=== PATIENT | male | born 1960 | race Caucasian/White ===

== ENCOUNTER → 2018-01-31 13:37 | Outpatient (REF) | payer MEDICARE, SELFPAY ==
[2018-02-03 11:11] LABS: Campylobacter PCR SEE COMMENTS; Salmonella PCR SEE COMMENTS; Shiga Toxin PCR SEE COMMENTS; Shigella/Enteroinvasive Ecoli SEE COMMENTS
== END ==
LOC: NCHCN 13:37
PROVIDERS: PCP Family Medicine; Visit Provider Family Medicine
DX: K92.1 Melena (principal)
CPT/HCPCS: 87505

== ENCOUNTER → 2018-02-07 09:58 | Outpatient (REF) | payer MEDICARE, SELFPAY ==
[2018-02-07 11:37] LABS: HCT 37.1 % (40.0-50.0); HGB 12.4 g/dL (13.5-17.5); Mean Corp. HGB Concentration 33.4 g/dL (32.0-36.0); Mean Corpuscular Hemoglobin 29.6 pg (27.0-33.0); Mean Corpuscular Volume 88.5 fL (80-95); Mean Platelet Volume 10.6 fL (8.0-11.0); Platelet Count 318 x1000/uL (130-400); RBC 4.19 m/cumm (4.50-6.00); RBC Distribution Width 13.4 % (11.8-14.1); White Blood Cell Count 9.83 k/cumm (4.4-10.8)
[2018-02-07 12:09] LABS: Anion Gap 9.5 mmol/L (3-11); BUN 19 mg/dL (7-18); CO2 26.5 mmol/L (21.0-32.0); CREATININE 1.16 mg/dL (0.70-1.30); Calcium 8.3 mg/dL (8.5-10.1); Chloride 103 mmol/L (98-107); Glucose 121 mg/dL (70-100); Potassium 4.7 mmol/L (3.5-5.1); Sodium 139 mmol/L (136-145); TSH 4.62 uIU/mL (0.358-3.74)
[2018-02-07 12:15] LABS: ESR 45 MM/HR (1-20)
== END ==
LOC: NCHCN 09:58
PROVIDERS: PCP Family Medicine; Visit Provider Family Medicine
DX: R94.6 Abnormal results of thyroid function studies (principal); K92.1 Melena; R79.89 Other specified abnormal findings of blood chemistry
CPT/HCPCS: 80048; 82533; 85027; 85652; 84443

== ENCOUNTER 2018-04-24 12:36 | Outpatient (REF) | payer MEDICARE, MEDICAID, SELFPAY ==
[2018-04-24 21:57] LABS: HCT 38.3 % (40.0-50.0); HGB 12.8 g/dL (13.5-17.5)
[2018-04-24 22:51] LABS: ALT 35 U/L (12-78); AST 49 U/L (15-37); Alkaline Phosphatase 140 U/L (46-116); Anion Gap 12.7 mmol/L (3-11); BUN 19 mg/dL (7-18); Bilirubin, Total 0.6 mg/dL (0.2-1.0); CO2 23.3 mmol/L (21.0-32.0); CREATININE 1.16 mg/dL (0.70-1.30); Chloride 100 mmol/L (98-107); Cholesterol 172 mg/dL (50-200); Glucose 119 mg/dL (70-100); HDL Cholesterol 53 mg/dL (40-60); LDL CHOLESTEROL 94 mg/dL (<100); Potassium 4.1 mmol/L (3.5-5.1); Sodium 136 mmol/L (136-145); Total Protein 7.7 g/dL (6.4-8.2); Triglyceride 168 mg/dL (30-150)
[2018-04-24 23:11] LABS: FREE T4 0.89 ng/dL (0.76-1.46)
[2018-04-28 09:03] LABS: EDDP-by GC-MS 9429 ng/mL; Methadone Interpretation Positive.; Methadone-by GC-MS 6854 ng/mL
[2018-04-28 10:08] LABS: PSA, Screening 0.2 ng/ml (0-3.5)
[2018-04-29 11:46] LABS: Amphetamine 1874 ng/mL (Cutoff: 25); Amphetamines Interpretation Positive.; MDA (Ecstasy Metabolite) Negative ng/mL (Cutoff: 25); MDMA (Ecstasy) Negative ng/mL (Cutoff: 25); Methamphetamine 6860 ng/mL (Cutoff: 25); Phentermine Negative ng/mL (Cutoff: 25); Pseudoephedrine/Ephedrine Negative ng/mL (Cutoff: 25)
[2018-04-30 12:02] LABS: Codeine Negative ng/mL (Cutoff: 25); Dihydrocodeine Negative ng/mL (Cutoff: 25); Hydrocodone Negative ng/mL (Cutoff: 25); Hydromorphone Negative ng/mL (Cutoff: 25); Morphine Negative ng/mL (Cutoff: 25); Naloxone Negative ng/mL (Cutoff: 25); Norhydrocodone Negative ng/mL (Cutoff: 25); Noroxycodone 370 ng/mL (Cutoff: 25); Noroxymorphone 33 ng/mL (Cutoff: 25); Opiates Interpretation Positive.
== END 2018-04-24 12:56 ==
LOC: NCHCN 12:36
PROVIDERS: PCP Family Medicine; Visit Provider Family Medicine
DX: R94.6 Abnormal results of thyroid function studies (principal); R07.9 Chest pain, unspecified; E78.5 Hyperlipidemia, unspecified; N28.9 Disorder of kidney and ureter, unspecified; K92.1 Melena; Z12.5 Encounter for screening for malignant neoplasm of prostate; F11.20 Opioid dependence, uncomplicated; G89.21 Chronic pain due to trauma; Z51.81 Encounter for therapeutic drug level monitoring
CPT/HCPCS: 80053; 80061; 80324; 80361; 83721; 84153; 80358; 84439; 84443; 85014; 85018

== ENCOUNTER 2018-05-16 16:17 | Outpatient (REF) | payer MEDICARE, MEDICAID, SELFPAY ==
[2018-05-20 22:37] LABS: Codeine Negative ng/mL (Cutoff: 25); Dihydrocodeine Negative ng/mL (Cutoff: 25); Hydrocodone Negative ng/mL (Cutoff: 25); Hydromorphone Negative ng/mL (Cutoff: 25); Morphine 260 ng/mL (Cutoff: 25); Naloxone Negative ng/mL (Cutoff: 25); Norhydrocodone Negative ng/mL (Cutoff: 25); Noroxycodone Negative ng/mL (Cutoff: 25); Noroxymorphone Negative ng/mL (Cutoff: 25)
[2018-05-21 03:25] LABS: EDDP-by GC-MS 5954 ng/mL; Methadone Interpretation Positive.; Methadone-by GC-MS 8125 ng/mL
[2018-05-21 10:17] LABS: Amphetamine 1644 ng/mL (Cutoff: 25); Amphetamines Interpretation Positive.; MDMA (Ecstasy) Negative ng/mL (Cutoff: 25); Methamphetamine 4780 ng/mL (Cutoff: 25); Phentermine Negative ng/mL (Cutoff: 25); Pseudoephedrine/Ephedrine Negative ng/mL (Cutoff: 25)
== END 2018-05-16 16:37 ==
LOC: NCHCN 16:17
PROVIDERS: PCP Family Medicine; Visit Provider Family Medicine
DX: G89.21 Chronic pain due to trauma (principal); F15.20 Other stimulant dependence, uncomplicated; F11.20 Opioid dependence, uncomplicated
CPT/HCPCS: 80324; 80361; 80358

== ENCOUNTER 2018-06-17 19:32 | Outpatient (REF) | payer MEDICARE, MEDICAID, SELFPAY ==
[2018-06-20 08:54] LABS: Codeine Negative ng/mL (Cutoff: 25); Dihydrocodeine Negative ng/mL (Cutoff: 25); Hydrocodone Negative ng/mL (Cutoff: 25); Hydromorphone Negative ng/mL (Cutoff: 25); Morphine Negative ng/mL (Cutoff: 25); Naloxone Negative ng/mL (Cutoff: 25); Norhydrocodone Negative ng/mL (Cutoff: 25); Noroxycodone Negative ng/mL (Cutoff: 25); Noroxymorphone Negative ng/mL (Cutoff: 25); Opiates Interpretation Negative.
== END 2018-06-17 19:52 ==
LOC: NCHCN 19:32
PROVIDERS: PCP Family Medicine; Visit Provider Family Medicine
DX: M54.5 Low back pain (principal); F11.20 Opioid dependence, uncomplicated
CPT/HCPCS: 80361

== ENCOUNTER 2018-12-02 22:25 | Outpatient (REF) | payer MEDICARE, MEDICAID, SELFPAY ==
[2018-12-02 23:00] LABS: Abs Immature Grans 0.02 k/cumm (0.0-0.09); Absolute Basophil Count 0.05 k/cumm (0.0-0.2); Absolute Eosinophil Count 0.32 k/cumm (0.0-0.7); Absolute Lymphocyte Count 2.79 k/cumm (1.2-3.4); Absolute Monocyte Count 0.66 k/cumm (0.11-0.7); Absolute Neutrophil Count 5.53 k/cumm (1.2-6.7); Basophils % 0.5; Eosinophils % 3.4; HCT 40.2 % (40.0-50.0); HGB 13.3 g/dL (13.5-17.5); Immature Grans % 0.2; Lymphocytes % 29.8; Mean Corp. HGB Concentration 33.1 g/dL (32.0-36.0); Mean Corpuscular Hemoglobin 28.5 pg (27.0-33.0); Mean Corpuscular Volume 86.3 fL (80-95); Mean Platelet Volume 11.2 fL (8.0-11.0); Neutrophils % 59.1; Platelet Count 258 x1000/uL (130-400); RBC 4.66 m/cumm (4.50-6.00); RBC Distribution Width 13.9 % (11.8-14.1); White Blood Cell Count 9.37 k/cumm (4.4-10.8)
[2018-12-02 23:01] LABS: ALT 30 U/L (12-78); AST 34 U/L (15-37); Albumin 3.9 g/dL (3.4-5.0); Alkaline Phosphatase 119 U/L (46-116); Anion Gap 7.6 mmol/L (3-11); BUN 21 mg/dL (7-18); Bilirubin, Total 0.3 mg/dL (0.2-1.0); CO2 26.4 mmol/L (21.0-32.0); CREATININE 0.93 mg/dL (0.70-1.30); Chloride 101 mmol/L (98-107); Glucose 122 mg/dL (70-100); Potassium 4.5 mmol/L (3.5-5.1); Sodium 135 mmol/L (136-145); Total Protein 7.5 g/dL (6.4-8.2)
[2018-12-05 13:36] LABS: Codeine Negative ng/mL (Cutoff: 25); Dihydrocodeine Negative ng/mL (Cutoff: 25); Hydrocodone Negative ng/mL (Cutoff: 25); Hydromorphone Negative ng/mL (Cutoff: 25); Morphine Negative ng/mL (Cutoff: 25); Naloxone Negative ng/mL (Cutoff: 25); Norhydrocodone Negative ng/mL (Cutoff: 25); Noroxycodone 136 ng/mL (Cutoff: 25); Noroxymorphone Negative ng/mL (Cutoff: 25); Opiates Interpretation Positive.
[2018-12-06 16:02] LABS: Benzoylecgonine 150 ng/mL (Cutoff: 50); Cocaine Negative ng/mL (Cutoff: 50); Cocaine Interpretation Positive.
[2018-12-09 09:34] LABS: Amphetamine 211 ng/mL (Cutoff: 25); Amphetamines Interpretation Positive.; MDA (Ecstasy Metabolite) Negative ng/mL (Cutoff: 25); MDMA (Ecstasy) Negative ng/mL (Cutoff: 25); Methamphetamine 529 ng/mL (Cutoff: 25); Phentermine Negative ng/mL (Cutoff: 25); Pseudoephedrine/Ephedrine Negative ng/mL (Cutoff: 25)
== END 2018-12-02 22:45 ==
LOC: NCHCN 22:25
PROVIDERS: PCP Family Medicine; Visit Provider Family Medicine
DX: I10 Essential (primary) hypertension (principal); M54.5 Low back pain; F19.20 Other psychoactive substance dependence, uncomplicated; G89.29 Other chronic pain
CPT/HCPCS: 80053; 80324; 80361; 80353; 85025

== ENCOUNTER 2019-06-16 16:40 | Outpatient (REF) | payer MEDICARE, MEDICAID, SELFPAY ==
[2019-06-16 21:53] LABS: HCT 37.6 % (40.0-50.0); Mean Corp. HGB Concentration 31.9 g/dL (32.0-36.0); Mean Corpuscular Hemoglobin 27.8 pg (27.0-33.0); Mean Platelet Volume 10.1 fL (8.0-11.0); Platelet Count 283 x1000/uL (130-400); RBC 4.32 m/cumm (4.50-6.00); White Blood Cell Count 7.66 k/cumm (4.4-10.8)
[2019-06-16 22:19] LABS: ALT 26 U/L (16-63); AST 31 U/L (15-37); Albumin 3.9 g/dL (3.4-5.0); Alkaline Phosphatase 106 U/L (46-116); Anion Gap 6.2 mmol/L (3-11); BUN 19 mg/dL (7-18); Bilirubin, Total 0.2 mg/dL (0.2-1.0); C-Reactive Protein 0.49 mg/dL (0.0-0.3); CO2 27.8 mmol/L (21.0-32.0); CREATININE 0.95 mg/dL (0.70-1.30); Calcium 8.6 mg/dL (8.5-10.1); Chloride 104 mmol/L (98-107); Creatine Kinase 307 U/L (39-308); Glucose 98 mg/dL (74-106); Magnesium 1.8 mg/dL (1.8-2.4); Potassium 4.3 mmol/L (3.5-5.1); Sodium 138 mmol/L (136-145); Total Protein 7.6 g/dL (6.4-8.2)
[2019-06-16 22:35] LABS: ESR 20 mm/hr (1-20)
[2019-06-19 03:27] LABS: EDDP-by GC-MS 943 ng/mL; Methadone Interpretation Positive.; Methadone-by GC-MS 2287 ng/mL
[2019-06-19 07:28] LABS: Amphetamine 515 ng/mL (Cutoff: 25); Amphetamines Interpretation Positive.; MDA (Ecstasy Metabolite) Negative ng/mL (Cutoff: 25); MDMA (Ecstasy) Negative ng/mL (Cutoff: 25); Methamphetamine 1244 ng/mL (Cutoff: 25); Phentermine Negative ng/mL (Cutoff: 25); Pseudoephedrine/Ephedrine Negative ng/mL (Cutoff: 25)
[2019-06-19 09:28] LABS: Codeine Negative ng/mL (Cutoff: 25); Dihydrocodeine Negative ng/mL (Cutoff: 25); Hydrocodone Negative ng/mL (Cutoff: 25); Hydromorphone Negative ng/mL (Cutoff: 25); Morphine Negative ng/mL (Cutoff: 25); Naloxone Negative ng/mL (Cutoff: 25); Norhydrocodone Negative ng/mL (Cutoff: 25); Noroxycodone Negative ng/mL (Cutoff: 25); Noroxymorphone Negative ng/mL (Cutoff: 25); Opiates Interpretation Negative.
== END 2019-06-16 17:00 ==
LOC: NCHCN 16:40
PROVIDERS: PCP Family Medicine; Visit Provider Family Medicine
DX: N28.9 Disorder of kidney and ureter, unspecified (principal); R40.4 Transient alteration of awareness; G89.21 Chronic pain due to trauma; F11.20 Opioid dependence, uncomplicated
CPT/HCPCS: 80053; 80324; 80361; 82550; 85027; 85652; 80358; 83735; 86140

== ENCOUNTER 2019-11-13 03:44 | Outpatient (CLI) | payer MEDICARE, MEDICAID, SELFPAY ==
--- NOTE | 2019-11-13 14:00 | DI.CTLCSR_ITS ---
EXAM: CT CHEST LUNG CANCER SCREEN CLINICAL HISTORY: PERSONAL H/O NICOTINE DEPENDENCE, Z87.891 TECHNIQUE: COMPARISON: No exams were available for comparison FINDINGS: CT examination of the chest was performed utilizing noncontrast low-dose lung cancer screening protoc ol. Images obtained through the upper abdomen show unremarkable appearance of visualized portions th e liver, spleen, pancreas, adrenals, and kidneys. There is calcified right upper lobe pulmonary nodule. There is a noncalcified well-circumscribed lef t lower lobe pulmonary nodule measuring 4 x 5 x 6 millimeters in diameter. No additional pulmonary n odule seen. Tracheobronchial tree appears intact. No mediastinal or hilar adenopathy. No cardiomeg seth. Coronary artery calcification noted. IMPRESSION: 5 millimeter mean diameter left basilar lung nodule. Lung RADS Cat 2 - Benign Appearance / Behavior: Nodules with a very low likelihood of becoming a clin ically active caner due to size or lack of growth follow-up low-dose CT recommended in 12 months.
== END 2019-11-13 04:04 ==
PROVIDERS: PCP Nurse Practitioner; Visit Provider Nurse Practitioner
DX: Z12.2 Encounter for screening for malignant neoplasm of respiratory organs (principal); Z87.891 Personal history of nicotine dependence; R91.1 Solitary pulmonary nodule
CPT/HCPCS: G0297